=== PATIENT | female | born 1995 | race Caucasian/White ===

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

== ENCOUNTER 2017-06-26 18:25 | Emergency (ER) | payer OTHER ==
[~2017-06-26] VITALS: Ht 170.1 cm; Wt 95.3 kg
[~2017-06-26 18:25] MED LIST changes: +IBU800 M1 PO; +SERTRALINE HYD100 MG PO
[2017-06-26 18:38] VITALS: BP 122/64
[2017-06-26 19:05] LABS: BASO % 0.2 % (0.0-1.0); EOS % 0.3 % (1.0-4.0); HEMATOCRIT 34.5 % (37.0-47.0); HEMOGLOBIN 12.6 g/dl (12.0-16.0); LYMPH # 1.8 10*3/uL (1.3-4.4); LYMPH % 16.5 % (27.0-41.0); MEAN CELL VOLUME 80.8 fl (81.0-99.0); MEAN CORPUSCULAR HGB 29.5 pg (27.0-31.0); MEAN CORPUSCULAR HGB CONC 36.5 g/dl (33.0-37.0); MEAN PLATELET VOLUME 10.5 fl (9.6-12.3); MONO # 1.3 10*3/uL (0.1-1.0); MONO % 12.4 % (3.0-9.0); NEUT # 7.4 10*3/uL (2.3-7.9); NEUT % 70.2 % (47.0-73.0); PLATELET COUNT AUTOMATED 133 10*3/uL (130-400); RED BLOOD COUNT 4.27 10*6/uL (4.10-5.10); RED CELL DISTRI WIDTH 12.3 % (0-14.5); WHITE BLOOD COUNT 10.6 10*3/uL (4.8-10.8)
[2017-06-26 19:20] LABS: ALBUMIN 3.2 gm/dl (3.1-4.5); ALKALINE PHOSPHATASE 81 U/L (45-117); BUN 7 mg/dl (7-24); CHLORIDE 101 mmol/L (98-107); CREATININE 0.87 mg/dL (0.55-1.02); POTASSIUM 3.7 mmol/L (3.5-5.1); SGOT/AST 12 IU/L (3-35); SGPT/ALT 14 U/L (12-78); SODIUM 134 mmol/L (136-145); TOTAL PROTEIN 7.7 gm/dL (6.4-8.2)
[2017-06-26] MEDS ORDERED: DELTASONE20 M1 PO (20:54)
[2017-06-26] MEDS ORDERED: ZYRTEC10 MG PO (20:55)
== END 2017-06-26 20:15 | disposition home or self-care (01) ==
LOC: ED 18:25
PROVIDERS: Physician Assistant
DX: B34.9 Viral infection, unspecified (principal); Z79.899 Other long term (current) drug therapy

== ENCOUNTER 2017-09-07 18:44 | Emergency (ER) | payer OTHER ==
[~2017-09-07] VITALS: Ht 170.1 cm; Wt 97.5 kg
[~2017-09-07 18:44] MED LIST changes: +DELTASONE20 M1 PO; +ZYRTEC10 MG PO
[2017-09-07 18:53] VITALS: BP 119/69
[2017-09-07] MEDS ORDERED: ZOFRAN ODT4 MG SL (20:30)
[2017-09-07] MEDS ORDERED: AMOXICILLIN500 M2 PO (20:31)
== END 2017-09-07 20:37 | disposition home or self-care (01) ==
LOC: ED 18:44
DX: B34.9 Viral infection, unspecified (principal); H65.02 Acute serous otitis media, left ear; Z79.899 Other long term (current) drug therapy

== ENCOUNTER → 2019-02-07 | Outpatient (CLI) | payer OTHER ==
[~2019-02-07] MED LIST changes: +AMOXICILLIN500 M2 PO; +IBUPROFEN600 MG PO; +ZOFRAN ODT4 MG SL
== END | disposition home or self-care (01) ==
LOC: US 12:30
DX: N83.209 Unspecified ovarian cyst, unspecified side (principal); R10.31 Right lower quadrant pain

== ENCOUNTER → 2020-08-21 | Outpatient (CLI) | payer OTHER | END | disposition home or self-care (01) | LOC: COVID19 13:30 | PROVIDERS: ATTEND Internal Medicine | DX: R05 Cough (principal); R06.02 Shortness of breath; J02.9 Acute pharyngitis, unspecified; Z20.822 Contact with and (suspected) exposure to COVID-19 ==

== ENCOUNTER 2021-12-06 20:34 | Emergency (ER) | payer OTHER ==
[~2021-12-06] VITALS: Ht 170.1 cm; Wt 83.5 kg
[2021-12-06 20:37] VITALS: BP 121/76
== END 2021-12-06 21:38 ==
LOC: ED 20:34
DX: Z02.89 Encounter for other administrative examinations (principal); F17.200 Nicotine dependence, unspecified, uncomplicated; Z79.899 Other long term (current) drug therapy

== ENCOUNTER 2022-01-03 16:17 | Inpatient (IN) | payer OTHER ==
[~2022-01-03] VITALS: Ht 170.1 cm; Wt 84.4 kg
[2022-01-03 17:03] VITALS: BP 116/78
[2022-01-03 18:07] LABS: BASO % 0.1 % (0.0-1.0); EOS # 0.3 10*3/uL (0.0-0.4); EOS % 3.3 % (1.0-4.0); HEMATOCRIT 32.7 % (37.0-47.0); LYMPH # 2.9 10*3/uL (1.3-4.4); LYMPH % 35.8 % (27.0-41.0); MEAN CELL VOLUME 81.8 fl (81.0-99.0); MEAN CORPUSCULAR HGB 27.5 pg (27.0-31.0); MEAN CORPUSCULAR HGB CONC 33.6 g/dl (33.0-37.0); MEAN PLATELET VOLUME 10.3 fl (9.6-12.3); MONO # 0.7 10*3/uL (0.1-1.0); MONO % 9.1 % (3.0-9.0); NEUT # 4.2 10*3/uL (2.3-7.9); NEUT % 51.5 % (47.0-73.0); PLATELET COUNT AUTOMATED 203 10*3/uL (130-400); RED CELL DISTRI WIDTH 13.8 % (0-14.5); WHITE BLOOD COUNT 8.1 10*3/uL (4.8-10.8)
[2022-01-03 18:20] LABS: ALKALINE PHOSPHATASE 88 U/L (45-117); BUN 6 mg/dl (7-24); CHLORIDE 106 mmol/L (98-107); CREATININE 0.75 mg/dL (0.55-1.02); POTASSIUM 4.4 mmol/L (3.5-5.1); SGOT/AST 22 IU/L (3-35); SGPT/ALT 12 U/L (12-78); SODIUM 136 mmol/L (136-145); TOTAL PROTEIN 7.4 gm/dL (6.4-8.2)
[2022-01-03 18:24] LABS: BETA-HCG, QUANT < 1.0 mIU/mL (1-3); ETHYL ALCOHOL < 3.0 mg/dl (<3)
[2022-01-03 20:35] VITALS: BP 108/66
[2022-01-03 22:16] LABS: BILIRUBIN Negative (Negative); BLOOD Negative (Negative); CLARITY Clear (Clear); COLOR Yellow (Yellow); GLUCOSE Negative (Negative); KETONE Negative (Negative); LEUKO ESTERASE 1+ (Negative); NITRITE Positive (Negative)
[2022-01-03 22:23] LABS: URINE AMPHETAMINES < 1000 (1000ng/ml); URINE BARBITURATES < 200 (200ng/ml); URINE BENZODIAZEPINES < 200 (200ng/ml); URINE CANNABINOIDS (THC) < 50 (50ng/ml); URINE COCAINE > 300 (300ng/ml); URINE METHADONE < 300 (300ng/ml); URINE OPIATES < 300 (300ng/ml)
[2022-01-03 22:31] LABS: URINE PHENCYCLIDINE < 25 (25ng/ml)
[2022-01-03 22:35] LABS: BACTERIA 3+; WBC 21-30 wbc/hpf (0-5)
[2022-01-04] VITALS: BP 109/62
[2022-01-04 08:00] VITALS: BP 106/60
[2022-01-04 16:00] VITALS: BP 103/62
[2022-01-04 20:00] VITALS: BP 121/77
[2022-01-05 08:00] VITALS: BP 126/72
[2022-01-05 12:00] VITALS: BP 120/87
[2022-01-05 16:00] VITALS: BP 95/52
[2022-01-05 20:00] VITALS: BP 100/61
[2022-01-06] VITALS: BP 116/75
[2022-01-06 05:19] LABS: CREATININE 0.68 mg/dL (0.55-1.02)
[2022-01-06 06:10] LABS: BASO % 0.1 % (0.0-1.0); EOS # 0.2 10*3/uL (0.0-0.4); EOS % 2.3 % (1.0-4.0); HEMATOCRIT 35.2 % (37.0-47.0); MEAN CELL VOLUME 81.3 fl (81.0-99.0); MEAN CORPUSCULAR HGB 27.5 pg (27.0-31.0); MEAN CORPUSCULAR HGB CONC 33.8 g/dl (33.0-37.0); MEAN PLATELET VOLUME 10.3 fl (9.6-12.3); MONO # 0.6 10*3/uL (0.1-1.0); MONO % 7.8 % (3.0-9.0); NEUT # 3.3 10*3/uL (2.3-7.9); NEUT % 46.8 % (47.0-73.0); PLATELET COUNT AUTOMATED 247 10*3/uL (130-400); RED BLOOD COUNT 4.33 10*6/uL (4.10-5.10); RED CELL DISTRI WIDTH 13.6 % (0-14.5); WHITE BLOOD COUNT 7.1 10*3/uL (4.8-10.8)
[2022-01-06 08:00] VITALS: BP 110/90
== END 2022-01-06 11:44 | disposition home or self-care (01) | DRG 773 ==
LOC: ED 16:17 → EDHOLD 17:22 → 4E 17:22
PROVIDERS: Internal Medicine; ADMIT Family Medicine; ATTEND Family Medicine
DX: F11.23 Opioid dependence with withdrawal (principal); E44.0 Moderate protein-calorie malnutrition; D64.9 Anemia, unspecified; Z68.29 Body mass index [BMI] 29.0-29.9, adult; E66.3 Overweight; F41.9 Anxiety disorder, unspecified; J30.2 Other seasonal allergic rhinitis; F17.200 Nicotine dependence, unspecified, uncomplicated; R73.9 Hyperglycemia, unspecified; R45.1 Restlessness and agitation

== ENCOUNTER 2023-09-10 04:15 | Emergency (ER) | payer OTHER ==
[~2023-09-10] VITALS: Ht 170.1 cm; Wt 110.9 kg
[2023-09-10 07:01] VITALS: BP 105/60
== END 2023-09-10 07:02 | disposition home or self-care (01) ==
LOC: ED 04:15
DX: S02.2XXA Fracture of nasal bones, initial encounter for closed fracture (principal); F17.200 Nicotine dependence, unspecified, uncomplicated; V89.2XXA Person injured in unspecified motor-vehicle accident, traffic, initial encounter; Y93.89 Activity, other specified; Y92.89 Other specified places as the place of occurrence of the external cause; Y99.8 Other external cause status

== ENCOUNTER → 2023-11-23 | Outpatient (CLI) | payer OTHER ==
[2023-11-23 13:37] LABS: URINE AMPHETAMINES Negative (1000ng/ml); URINE BARBITURATES Negative (200ng/ml); URINE BENZODIAZEPINES Negative (200ng/ml); URINE CANNABINOIDS (THC) Negative (50ng/ml); URINE COCAINE Negative (300ng/ml); URINE METHADONE Negative (300ng/ml); URINE OPIATES Negative (300ng/ml); URINE PHENCYCLIDINE Negative (25ng/ml)
== END | disposition home or self-care (01) ==
LOC: LAB 13:10
PROVIDERS: ATTEND Nurse Practitioner Family
DX: Z79.899 Other long term (current) drug therapy (principal)

== ENCOUNTER 2024-03-27 17:02 | Emergency (ER) | payer OTHER ==
[~2024-03-27] VITALS: Ht 170.1 cm; Wt 90.7 kg
[2024-03-27 17:30] VITALS: BP 111/65
[2024-03-27] MEDS ORDERED: METRONIDAZOLE500 M1 PO (17:47)
[2024-03-27] MEDS ORDERED: METRONIDAZOLE 500 MG TAB PO ONE (17:50)
== END 2024-03-27 18:17 | disposition home or self-care (01) ==
LOC: ED 17:02
DX: Z20.89 Contact with and (suspected) exposure to other communicable diseases (principal); F41.9 Anxiety disorder, unspecified; F17.200 Nicotine dependence, unspecified, uncomplicated; F19.10 Other psychoactive substance abuse, uncomplicated; Z88.8 Allergy status to other drugs, medicaments and biological substances

== ENCOUNTER → 2025-03-08 | Outpatient (CLI) | payer OTHER ==
[~2025-03-08] MED LIST changes: +METRONIDAZOLE500 M1 PO
== END | disposition home or self-care (01) ==
LOC: US 14:46
PROVIDERS: ATTEND Nurse Practitioner Women's Health
DX: Z34.01 Encounter for supervision of normal first pregnancy, first trimester (principal); Z3A.08 8 weeks gestation of pregnancy

== ENCOUNTER 2025-03-11 11:20 | Emergency (ER) | payer OTHER ==
[~2025-03-11] VITALS: Ht 170.1 cm; Wt 79.4 kg
[2025-03-11 11:33] VITALS: BP 120/75
[2025-03-11 12:13] LABS: BILIRUBIN Negative (Negative); BLOOD 2+ (Negative); CLARITY Clear (Clear); COLOR Yellow (Yellow); KETONE Negative (Negative); LEUKO ESTERASE 1+ (Negative); NITRITE Negative (Negative); PH 7.5 (4.5-8.0); SPECIFIC GRAVITY 1.010 (1.001-1.030); UROBILINOGEN 0.2 E.U./dl (0.0-1.0)
[2025-03-11 12:19] LABS: URINE AMPHETAMINES Negative (1000ng/ml); URINE BARBITURATES Negative (200ng/ml); URINE BENZODIAZEPINES Negative (200ng/ml); URINE CANNABINOIDS (THC) Positive (50ng/ml); URINE COCAINE Negative (300ng/ml); URINE METHADONE Negative (300ng/ml); URINE OPIATES Negative (300ng/ml); URINE PHENCYCLIDINE Negative (25ng/ml)
[2025-03-11 12:22] LABS: BASO # 0.0 10*3/uL (0.0-0.1); BASO % 0.1 % (0.0-1.0); EOS # 0.1 10*3/uL (0.0-0.4); EOS % 1.6 % (1.0-4.0); MEAN CELL VOLUME 89.2 fl (81.0-99.0); MEAN CORPUSCULAR HGB 31.4 pg (27.0-31.0); MEAN PLATELET VOLUME 9.9 fl (9.6-12.3); MONO # 0.5 10*3/uL (0.1-1.0); MONO % 7.3 % (3.0-9.0); NEUT # 4.5 10*3/uL (2.3-7.9); NEUT % 66.6 % (47.0-73.0); NUCLEATED RED BLOOD CELL 0.0 % (0.0-0.0); NUCLEATED RED BLOOD CELL 0.0 10*3/uL (0.0-0.0); PLATELET COUNT AUTOMATED 152 10*3/uL (130-400); RED CELL DISTRI WIDTH 13.2 % (0-14.5)
[2025-03-11 12:27] LABS: BACTERIA 2+; RBC 0-2 rbc/hpf (0-2)
[2025-03-11 12:56] LABS: BUN 5 mg/dl (9-23); SGPT/ALT 10 U/L (5-49)
[2025-03-11 13:12] LABS: BETA-HCG, QUANT 100783.0 mIU/mL (3-10)
[2025-03-11] MEDS ORDERED: AMOX-CLAV 875-1 EACH PO (14:22)
== END 2025-03-11 14:30 | disposition home or self-care (01) ==
LOC: ED 11:20
PROVIDERS: Internal Medicine
DX: O23.41 Unspecified infection of urinary tract in pregnancy, first trimester (principal); N39.0 Urinary tract infection, site not specified; O99.321 Drug use complicating pregnancy, first trimester; F12.90 Cannabis use, unspecified, uncomplicated; O20.9 Hemorrhage in early pregnancy, unspecified; O99.331 Smoking (tobacco) complicating pregnancy, first trimester; F17.290 Nicotine dependence, other tobacco product, uncomplicated; Z3A.08 8 weeks gestation of pregnancy

== ENCOUNTER 2025-08-01 23:33 | Emergency (ER) | payer OTHER ==
[~2025-08-01] VITALS: Ht 170.1 cm; Wt 90.7 kg
[~2025-08-01 23:33] MED LIST changes: +AMOX-CLAV 875-1 EACH PO
[2025-08-01 23:44] VITALS: BP 110/74
[2025-08-02] MEDS ORDERED: ACETAMINOPHEN 325 MG TAB PO ONE ×2 (00:15→23:55)
== END 2025-08-02 00:22 | disposition home or self-care (01) ==
LOC: ED 23:33
DX: O26.891 Other specified pregnancy related conditions, first trimester (principal); S29.011A Strain of muscle and tendon of front wall of thorax, initial encounter; Z3A.01 Less than 8 weeks gestation of pregnancy; X58.XXXA Exposure to other specified factors, initial encounter; Y93.89 Activity, other specified; Y92.89 Other specified places as the place of occurrence of the external cause; Y99.8 Other external cause status